=== PATIENT | male | born 1955 | race Caucasian/White ===

== ENCOUNTER → 2017-01-16 | Outpatient (CLI) | payer MEDICARE ==
[2017-01-16 10:47] LABS: Basophils % (A) 0 %; CH 32.6; CHCM 35.9; Eosinophils # (A) 0.2 k/uL (0-0.7); Eosinophils % (A) 3 %; HDW 2.67; HGB 14.6 gm/dL (13.0-17.5); Luc # (Auto) 0.16; Luc % (Auto) 3; Lymphocytes # (A) 1.6 k/uL (1.0-4.8); Lymphocytes % (A) 30 %; MCH 31.7 pg (25.0-35.0); MCHC 34.8 g/dL (31.0-37.0); MCV 91.1 fL (80.0-100.0); Mean Platelet Volume 7.5; Monocytes # (A) 0.4 k/uL (0-1.0); Monocytes % (A) 7 %; Neutrophils # (A) 2.9 k/uL (1.3-7.7); Neutrophils % (A) 56 %; RBC 4.61 m/uL (4.30-5.90); RDW 12.6 % (11.5-15.5); WBC 5.3 k/uL (3.8-10.6); WBC (Perox) 4.86
[2017-01-16 11:09] LABS: ALT 53 U/L (21-72); AST 27 U/L (17-59); Alkaline Phosphatase 66 U/L (38-126); Anion Gap 10 mmol/L; Blood Urea Nitrogen 12 mg/dL (9-20); Calcium 9.7 mg/dL (8.4-10.2); Carbon Dioxide 27 mmol/L (22-30); Chloride 103 mmol/L (98-107); Cholesterol 179 mg/dL (<200); Glucose 146 mg/dL (74-99); HDL Cholesterol 42 mg/dL (40-60); Non-African American GFR(MDRD) >60 (>60 ml/min/1.73 sqM); Potassium 4.2 mmol/L (3.5-5.1); Sodium 140 mmol/L (137-145); Total Bilirubin 0.7 mg/dL (0.2-1.3); Triglycerides 210 mg/dL (<150)
[2017-01-16 11:39] LABS: Prostate Specific Antigen 1.19 ng/mL (0.00-4.00)
[2017-01-16 14:35] LABS: Hemoglobin A1C 6.8 % (4.2-6.1)
[2017-01-16 15:07] LABS: Urine Creatinine 57.9 mg/dL
== END | disposition home or self-care (01) ==
LOC: LABWHC1 09:39
PROVIDERS: ATTEND Internal Medicine
DX: E11.9 Type 2 diabetes mellitus without complications (principal); E55.9 Vitamin D deficiency, unspecified; I10 Essential (primary) hypertension; R89.9 Unspecified abnormal finding in specimens from other organs, systems and tissues; Z12.5 Encounter for screening for malignant neoplasm of prostate
CPT/HCPCS: 36415; 80053; 80061; 82043; 82306; 82570; 83036; 83516; 84153; 85025

== ENCOUNTER → 2017-03-08 | Outpatient (CLI) | payer MEDICARE ==
--- NOTE | 2017-03-08 16:34 | XR ---
EXAMINATION TYPE: XR KUB DATE OF EXAM: 03/08/2017 COMPARISON: 02/26/2016 HISTORY: Right-sided pain TECHNIQUE: One view abdominal series FINDINGS: The osseous structures are intact. The bowel gas pattern is nonspecific. Arthropathy of the hips not ed. Calcifications in the pelvis are likely vascular. There are 2 lower pole right renal calculi the largest of which measures 1.2 cm. A second measures 5 mm. Hypertrophic and degenerative change of the spine. Hypertrophic changes of the iliac bones. IMPRESSION: 1. Right-sided nephrolithiasis.
== END | disposition home or self-care (01) ==
LOC: RADXRMAIN 13:27
PROVIDERS: ATTEND Urology
DX: N20.0 Calculus of kidney (principal)
CPT/HCPCS: 74000

== ENCOUNTER → 2017-09-25 | Outpatient (CLI) | payer MEDICARE ==
--- NOTE | 2017-09-26 09:17 | US ---
EXAMINATION TYPE: US kidneys/renal and bladder DATE OF EXAM: 09/25/2017 COMPARISON: NONE CLINICAL HISTORY: N20.0 KIDNEY STONE. EXAM MEASUREMENTS: Right Kidney: 12.1 x 5.2 x 5.9 cm Left Kidney: 11.4 x 5.8 x 5.9 cm Right Kidney: 2 stones noted measuring 1.5 x 0.7 x 1.0cm , 1.) 0.8 x 0.5 x 0.6cm, measures slightly large Left Kidney: No hydronephrosis or masses seen Bladder: not fully distended and therefore incompletely evaluated There is no evidence for hydronephrosis at this point in time. No masses are identified. The urinar y bladder is anechoic. IMPRESSION: Right-sided nephrolithiasis with calculi measuring up to 1.5 cm. No evidence of hydronephrosis bilat erally or obstructive uropathy.
== END | disposition home or self-care (01) ==
LOC: RADUSWWP 14:42
PROVIDERS: ATTEND Urology
DX: N20.0 Calculus of kidney (principal)
CPT/HCPCS: 76770

== ENCOUNTER → 2018-04-16 | Outpatient (CLI) | payer MEDICARE ==
--- NOTE | 2018-04-16 13:34 | US ---
EXAMINATION TYPE: US kidneys/renal and bladder DATE OF EXAM: 04/16/2018 COMPARISON: 09/25/2017 CLINICAL HISTORY: N20.0 Calculus of kidney. hx of renal stones with them being blasted. No pain at t his time. EXAM MEASUREMENTS: Right Kidney: 11.9 x 5.0 x 5.2 cm Left Kidney: 11.8 x 5.6 x 7.0 cm Right Kidney: inferior echogenic focus with shadow - 2.0 x 0.9 cm Left Kidney: wnl Bladder: distended, wnl as visualized Bilateral Jets seen There is no evidence for hydronephrosis at this point in time. No nephrolithiasis is seen. No chandler s are identified. The urinary bladder is anechoic. Bilateral ureteral jets are seen. IMPRESSION: Nonobstructing right lower pole 2 cm renal calculus. No hydronephrosis bilaterally.
== END | disposition home or self-care (01) ==
LOC: RADUSWWP 12:07
PROVIDERS: ATTEND Urology
DX: N20.0 Calculus of kidney (principal)
CPT/HCPCS: 36415; 76770; 84153

== ENCOUNTER → 2018-07-06 | Outpatient (CLI) | payer MEDICARE ==
[2018-07-06 11:15] LABS: Basophils % (A) 0 %; Eosinophils # (A) 0.2 k/uL (0-0.7); Eosinophils % (A) 3 %; HCT 46.2 % (39.0-53.0); HGB 16.3 gm/dL (13.0-17.5); Lymphocytes # (A) 1.6 k/uL (1.0-4.8); Lymphocytes % (A) 27 %; MCH 31.7 pg (25.0-35.0); MCHC 35.3 g/dL (31.0-37.0); Mean Platelet Volume 7.2; Monocytes # (A) 0.5 k/uL (0-1.0); Monocytes % (A) 9 %; Neutrophils # (A) 3.5 k/uL (1.3-7.7); Neutrophils % (A) 59 %; Platelet Count 156 k/uL (150-450); RBC 5.14 m/uL (4.30-5.90); WBC 5.9 k/uL (3.8-10.6)
[2018-07-06 16:41] LABS: Albumin 4.8 g/dL (3.80-4.90); Albumin/Globulin Ratio 1.92 (1.20-2.10); Anion Gap 11.7 mmol/L (4.00-12.00); Calcium 10.3 mg/dL (8.7-10.3); Carbon Dioxide 24.3 mmol/L (21.6-31.8); Globulin 2.5 g/dL (1.6-3.3); Total Bilirubin 0.7 mg/dL (0.2-1.2); Total Protein 7.3 g/dL (6.2-8.2)
== END ==
LOC: LABWHC1 10:37
PROVIDERS: ATTEND Internal Medicine Gastroenterology
DX: M62.84 Sarcopenia (principal); E66.01 Morbid (severe) obesity due to excess calories; E88.01 Alpha-1-antitrypsin deficiency; K76.0 Fatty (change of) liver, not elsewhere classified; R74.0 Nonspecific elevation of levels of transaminase and lactic acid dehydrogenase [LDH]
CPT/HCPCS: 36415; 80053; 84402; 84403; 85025

== ENCOUNTER → 2018-09-03 | Outpatient (CLI) | payer MEDICARE ==
--- NOTE | 2018-09-03 14:05 | US ---
EXAMINATION TYPE: US kidneys/renal and bladder DATE OF EXAM: 09/03/2018 COMPARISON: NONE CLINICAL HISTORY: N20.0 Kidney Stone. known right stone EXAM MEASUREMENTS: Right Kidney: 12.5 x 6.5 x 6.0 cm Left Kidney: 11.7 x 5.4 x 6.5 cm Right Kidney: 2 mid pole stones seen, #1 = 1.7cm, #2 = 1.2cm Left Kidney: No hydronephrosis or masses seen Bladder: wnl Bilateral Jets seen: Yes IMPRESSION: 1. Right renal stones without evidence of obstruction.
== END | disposition home or self-care (01) ==
LOC: RADUSWWP 12:55
PROVIDERS: ATTEND Urology
DX: N20.0 Calculus of kidney (principal)
CPT/HCPCS: 76770

== ENCOUNTER → 2019-01-02 | Outpatient (CLI) | payer MEDICARE ==
--- NOTE | 2019-01-03 07:15 | US ---
EXAMINATION TYPE: US kidneys/renal and bladder DATE OF EXAM: 01/02/2019 COMPARISON: 09/03/2018 CLINICAL HISTORY: N20.0 KIDNEY STONE. hx of renal stones. Intermittent pain. FU stones EXAM MEASUREMENTS: Right Kidney: 11.9 x 5.6 x 5.5 cm Left Kidney: 12.7 x 5.4 x 5.6 cm Right Kidney: Echogenic foci seen with shadowing. 1- mid= 1.8 cm. 2- lower pole = 1.0 cm Left Kidney: No hydronephrosis or masses seen Bladder: distended, wnl Bilateral Jets seen There is no evidence for hydronephrosis at this point in time. No nephrolithiasis is seen on the lef t. No masses are identified. The urinary bladder is anechoic. Bilateral ureteral jets are seen. IMPRESSION: Nonobstructing right renal calculi measuring 1.8 cm and 1.0 cm. These were seen on the prior exam of 09/03/2018.
== END | disposition home or self-care (01) ==
LOC: RADUSWWP 16:18
PROVIDERS: ATTEND Urology
DX: N20.0 Calculus of kidney (principal)
CPT/HCPCS: 76770

== ENCOUNTER → 2019-02-01 | Outpatient (CLI) | payer MEDICARE ==
[2019-02-01 11:42] LABS: Appearance,Urine Clear (Clear); Bilirubin,Urine Negative (Negative); Blood,Urine Large (Negative); Color,Urine Yellow; Glucose,Urine (UA) Negative (Negative); Ketones,Urine Negative (Negative); Leukocyte Esterase,Urine Moderate (Negative); Nitrite,Urine Negative (Negative); Protein,Urine 2+ (Negative); RBC,Urine >182 /hpf (0-5); Specific Gravity,Urine 1.015 (1.001-1.035); Squamous Epithelial Cell,Urine <1 /hpf (0-4); Urobilinogen,Urine <2.0 mg/dL (<2.0); WBC,Urine 37 /hpf (0-5)
[2019-02-01 12:37] LABS: Basophils % (A) 1 %; Eosinophils # (A) 0.2 k/uL (0-0.7); Eosinophils % (A) 3 %; HCT 43.5 % (39.0-53.0); HGB 14.8 gm/dL (13.0-17.5); Lymphocytes # (A) 1.4 k/uL (1.0-4.8); Lymphocytes % (A) 28 %; MCH 30.9 pg (25.0-35.0); MCHC 34.1 g/dL (31.0-37.0); MCV 90.6 fL (80.0-100.0); Mean Platelet Volume 6.8; Monocytes # (A) 0.4 k/uL (0-1.0); Monocytes % (A) 7 %; Neutrophils % (A) 59 %; Platelet Count 161 k/uL (150-450); RDW 12.1 % (11.5-15.5); WBC 5.1 k/uL (3.8-10.6)
[2019-02-01 14:34] LABS: Erythrocyte Sedimentation Rate 8 mm/hr (0-15)
[2019-02-01 17:10] LABS: African American GFR (CKD) 111.7 (60.0-200.0); Albumin 4.5 g/dL (3.80-4.90); Albumin/Globulin Ratio 2.14 (1.60-3.17); Anion Gap 8.4 mmol/L (4.00-12.00); Calcium 9.4 mg/dL (8.7-10.3); Carbon Dioxide 26.6 mmol/L (21.6-31.8); Globulin 2.1 g/dL (1.6-3.3); LDL Cholesterol,Calculated 95.4 mg/dL (0.0-131.0); Potassium 4.3 mmol/L (3.5-5.5); Total Bilirubin 0.7 mg/dL (0.2-1.2); Total Protein 6.6 g/dL (6.2-8.2); VLDL Calculation 45.6 mg/dL (5.00-40.00)
[2019-02-01 17:16] LABS: T4, Free (Free Thyroxine) 1.1 ng/dL (0.80-1.80)
== END | disposition home or self-care (01) ==
LOC: LABWHC1 10:40
PROVIDERS: ATTEND Internal Medicine
DX: I10 Essential (primary) hypertension (principal); E11.9 Type 2 diabetes mellitus without complications; N20.0 Calculus of kidney; E55.9 Vitamin D deficiency, unspecified; R53.83 Other fatigue; E04.2 Nontoxic multinodular goiter; Z12.5 Encounter for screening for malignant neoplasm of prostate
CPT/HCPCS: 36415; 80053; 80061; 81001; 82306; 82550; 84153; 84402; 84403; 84439; 84443; 84481; 85025; 85652

== ENCOUNTER → 2019-04-18 | Outpatient (CLI) | payer MEDICARE ==
--- NOTE | 2019-04-19 07:40 | US ---
EXAMINATION TYPE: US kidneys/renal and bladder DATE OF EXAM: 04/18/2019 COMPARISON: 01/02/2019 CLINICAL HISTORY: N20.0 Calculus of kidney. follow up stones. No pain. EXAM MEASUREMENTS: Right Kidney: 11.2 x 5.8 x 5.9 cm Left Kidney: 12.0 x 4.5 x 6.6 cm Right Kidney: Two echogenic foci visualized with shadow. 1- mid medial - 1.7 x 1.7 cm with possible obstruction. 2- lower pole - 1.0 x 0.9 cm Left Kidney: No hydronephrosis or masses seen Bladder: wnl, distended Bilateral Jets seen There is no evidence for hydronephrosis at this point in time. No nephrolithiasis is seen on the lef t. No masses are identified. The urinary bladder is anechoic. Bilateral ureteral jets are seen. IMPRESSION: Redemonstration of known right-sided nephrolithiasis with calculi measuring up to 1.7 cm. No evidence of hydronephrosis or obstructive uropathy within either kidney.
== END | disposition home or self-care (01) ==
LOC: RADUSWWP 16:17
PROVIDERS: ATTEND Urology
DX: N20.0 Calculus of kidney (principal)
CPT/HCPCS: 76770

== ENCOUNTER → 2019-06-04 | Outpatient (CLI) | payer MEDICARE ==
[2019-06-04 11:42] LABS: HGB 14.8 gm/dL (13.0-17.5); MCH 31.9 pg (25.0-35.0); MCHC 35.2 g/dL (31.0-37.0); MCV 90.6 fL (80.0-100.0); Mean Platelet Volume 6.4; Platelet Count 191 k/uL (150-450); RBC 4.64 m/uL (4.30-5.90); RDW 12.1 % (11.5-15.5); WBC 4.3 k/uL (3.8-10.6)
[2019-06-04 12:39] LABS: Appearance,Urine Clear (Clear); Bilirubin,Urine Negative (Negative); Blood,Urine Moderate (Negative); Color,Urine Yellow; Glucose,Urine (UA) Negative (Negative); Hyaline Casts,Urine 1 /lpf (0-2); Ketones,Urine Negative (Negative); Leukocyte Esterase,Urine Moderate (Negative); Mucus,Urine Rare /hpf; Nitrite,Urine Negative (Negative); PH, Urine 6.5 (5.0-8.0); Protein,Urine 2+ (Negative); RBC,Urine >182 /hpf (0-5); Specific Gravity,Urine 1.018 (1.001-1.035); Urobilinogen,Urine <2.0 mg/dL (<2.0); WBC,Urine 38 /hpf (0-5)
[2019-06-04 16:28] LABS: African American GFR (CKD) 106.5 (60.0-200.0); Albumin 4.7 g/dL (3.80-4.90); Albumin/Globulin Ratio 2.35 (1.60-3.17); Anion Gap 9.8 mmol/L (4.00-12.00); BUN/Creat Ratio 18.89 Ratio (12.00-20.00); Calcium 9.7 mg/dL (8.7-10.3); Carbon Dioxide 27.2 mmol/L (21.6-31.8); Non-African American GFR(CKD) 91.9 (60.0-200.0); Phosphorus 2.8 mg/dL (2.4-5.1); Potassium 3.9 mmol/L (3.5-5.5); Total Bilirubin 0.7 mg/dL (0.3-1.2); Total Protein 6.7 g/dL (6.2-8.2); Uric Acid 7.7 mg/dL (3.7-8.7)
[2019-06-04 17:54] LABS: Creatinine,Urine Random 107.2 mg/dL
[2019-06-04 18:06] LABS: Total Protein,Urine Random 150.4 mg/dL (0.0-13.5)
== END | disposition home or self-care (01) ==
LOC: LABWHC1 09:33
PROVIDERS: ATTEND Internal Medicine
DX: N18.1 Chronic kidney disease, stage 1 (principal); R80.9 Proteinuria, unspecified
CPT/HCPCS: 36415; 80053; 81001; 82043; 82306; 82310; 82570; 83970; 84100; 84156; 84550; 85027

== ENCOUNTER → 2019-12-17 | Outpatient (CLI) | payer MEDICARE ==
[2019-12-17 13:11] LABS: HCT 42.8 % (39.0-53.0); HGB 14.8 gm/dL (13.0-17.5); MCH 31.9 pg (25.0-35.0); MCHC 34.6 g/dL (31.0-37.0); MCV 92.1 fL (80.0-100.0); Mean Platelet Volume 7.5; Platelet Count 202 k/uL (150-450); RBC 4.65 m/uL (4.30-5.90); RDW 11.8 % (11.5-15.5); WBC 8.4 k/uL (3.8-10.6)
[2019-12-17 13:29] LABS: Appearance,Urine Cloudy (Clear); Bilirubin,Urine Negative (Negative); Blood,Urine Large (Negative); Color,Urine Red; Glucose,Urine (UA) Negative (Negative); Ketones,Urine Negative (Negative); Leukocyte Esterase,Urine Trace (Negative); Nitrite,Urine Negative (Negative); PH, Urine 7.5 (5.0-8.0); Protein,Urine 1+ (Negative); RBC,Urine >182 /hpf (0-5); Specific Gravity,Urine 1.019 (1.001-1.035); WBC,Urine 22 /hpf (0-5)
[2019-12-17 14:24] LABS: Protein/Creatinine Ratio,Urine 1.346
[2019-12-17 19:43] LABS: Protein, Total 7.1 g/dL (6.2-8.2)
[2019-12-17 19:56] LABS: Albumin 4.6 g/dL (3.80-4.90); Albumin/Globulin Ratio 1.84 (1.60-3.17); Anion Gap 12.5 mmol/L (4.00-12.00); BUN/Creat Ratio 21.25 Ratio (12.00-20.00); Calcium 9.8 mg/dL (8.7-10.3); Carbon Dioxide 25.5 mmol/L (21.6-31.8); Globulin 2.5 g/dL (1.6-3.3); Non-African American GFR(CKD) 95.7 (60.0-200.0); Phosphorus 2.9 mg/dL (2.4-5.1); Potassium 4.3 mmol/L (3.5-5.5); Total Bilirubin 0.4 mg/dL (0.3-1.2); Total Protein 7.1 g/dL (6.2-8.2); Uric Acid 6.8 mg/dL (3.7-8.7)
[2019-12-17 20:25] LABS: Hepatitis B Core IgM Non-Reactive (Non-Reactive); Hepatitis B Surface AB- Quant 128.5 mIU/mL; Hepatitis B Surface Antibody Reactive (Non-Reactive); Hepatitis B Surface Antigen Non-Reactive (Non-Reactive); Hepatitis C IgG Antibody Non-Reactive (Non-Reactive)
[2019-12-17 21:16] LABS: Anti-DNA, DS unit <1.0 IU/mL; DNA Double-Stranded NEGATIVE (NEGATIVE)
[2019-12-18 09:38] LABS: Free Kappa Lt Chain Qnt, Serum 1.47 mg/dL (0.33-1.94)
[2019-12-18 11:41] LABS: Anti-Glomerular Basement Memb 1 UNITS (0-20)
[2019-12-18 13:57] LABS: Albumin 4.09 g/dL (3.80-4.90); Gamma Globulin 1.11 g/dL (0.70-1.50)
[2019-12-18 14:54] LABS: C-ANCA <1:20 Titer (<1:20)
[2019-12-20 15:06] LABS: Hepatitis BE Antibody NEG (Negative)
== END | disposition home or self-care (01) ==
LOC: LABWHC1 11:55
PROVIDERS: ATTEND Internal Medicine
DX: D64.9 Anemia, unspecified (principal); R80.9 Proteinuria, unspecified; N39.0 Urinary tract infection, site not specified; M10.9 Gout, unspecified
CPT/HCPCS: 36415; 80053; 81001; 82570; 83516; 83883; 84100; 84156; 84165; 84166; 84550; 85027; 86038; 86160; 86225; 86255; 86334; 86704; 86705; 86706; 86707; 86803; 87340

== ENCOUNTER → 2020-01-28 | Outpatient (CLI) | payer MEDICARE ==
--- NOTE | 2020-01-28 12:54 | US ---
EXAMINATION TYPE: US kidneys/renal and bladder DATE OF EXAM: 01/28/2020 COMPARISON: NONE CLINICAL HISTORY: 64-year-old male N20.0 Kidney Stone. Known renal stones TECHNIQUE: Multiple sonographic images of the kidneys and bladder are obtained. FINDINGS: EXAM MEASUREMENTS: Right Kidney: 12.1 x 5.4 x 6.2 cm Left Kidney: 12.5 x 5.1 x 7.0 cm Right Kidney: multiple stones seen, largest at inferior pole 2.1cm, second stone centrally at the mid pole = 1.8cm . There may be mild pelvocaliectasis. Left Kidney: 1.0cm inferior pole stone seen without hydronephrosis. No hydronephrosis on either side. Bladder: wnl Bilateral Jets seen: yes IMPRESSION: 1. Bilateral nephrolithiasis. On the right, there is a centrally located 1.8 cm calculus possibly in the renal pelvis. The calyces may be slightly distended. 2. Both ureteral jets are visualized arguing against obstructive uropathy at this time.
== END | disposition home or self-care (01) ==
LOC: RADUSWWP 10:32
PROVIDERS: ATTEND Urology
DX: N20.0 Calculus of kidney (principal)
CPT/HCPCS: 76770

== ENCOUNTER → 2020-04-22 | Outpatient (CLI) | payer MEDICARE ==
[2020-04-22 08:36] LABS: Basophils % (A) 0 %; Eosinophils # (A) 0.1 k/uL (0-0.7); Eosinophils % (A) 2 %; HCT 46.9 % (39.0-53.0); HGB 15.2 gm/dL (13.0-17.5); Lymphocytes # (A) 1.4 k/uL (1.0-4.8); Lymphocytes % (A) 27 %; MCH 30.5 pg (25.0-35.0); MCHC 32.3 g/dL (31.0-37.0); MCV 94.3 fL (80.0-100.0); Mean Platelet Volume 7.5; Monocytes # (A) 0.4 k/uL (0-1.0); Monocytes % (A) 8 %; Neutrophils # (A) 3.3 k/uL (1.3-7.7); Neutrophils % (A) 61 %; Platelet Count 167 k/uL (150-450); RBC 4.97 m/uL (4.30-5.90); RDW 12.1 % (11.5-15.5); WBC 5.4 k/uL (3.8-10.6)
[2020-04-22 10:04] LABS: Protein/Creatinine Ratio,Urine 1.37
[2020-04-22 10:14] LABS: Appearance,Urine Clear (Clear); Bacteria,Urine Occasional /hpf; Bilirubin,Urine Negative (Negative); Blood,Urine Small (Negative); Color,Urine Light Yellow; Glucose,Urine (UA) Negative (Negative); Ketones,Urine Negative (Negative); Leukocyte Esterase,Urine Large (Negative); Mucus,Urine Rare /hpf; Nitrite,Urine Negative (Negative); PH, Urine 6.5 (5.0-8.0); Protein,Urine 1+ (Negative); RBC,Urine 7 /hpf (0-5); Specific Gravity,Urine 1.009 (1.001-1.035); Squamous Epithelial Cell,Urine <1 /hpf (0-4); Urobilinogen,Urine <2.0 mg/dL (<2.0); WBC,Urine 40 /hpf (0-5)
[2020-04-22 18:22] LABS: African American GFR (CKD) 117.2 (60.0-200.0); Albumin 4.5 g/dL (3.80-4.90); Albumin/Globulin Ratio 1.96 (1.60-3.17); BUN/Creat Ratio 24.29 Ratio (12.00-20.00); Calcium 9.4 mg/dL (8.7-10.3); Globulin 2.3 g/dL (1.6-3.3); Non-African American GFR(CKD) 101.1 (60.0-200.0); Phosphorus 2.7 mg/dL (2.4-5.1); Potassium 4.3 mmol/L (3.5-5.5); Total Bilirubin 0.7 mg/dL (0.2-1.2); Total Protein 6.8 g/dL (6.2-8.2); Uric Acid 6.6 mg/dL (3.7-8.7)
[2020-04-22 18:30] LABS: PSA Annual Screen 1.2 ng/mL (0.0-4.0)
[2020-04-24 11:35] LABS: Chol/HDL Ratio 4.18; LDL Cholesterol,Calculated 86.6 mg/dL (0.0-131.0); VLDL Calculation 34.4 mg/dL (5.00-40.00)
== END | disposition home or self-care (01) ==
LOC: LABWHC1 07:31
PROVIDERS: ATTEND Internal Medicine
DX: Z12.5 Encounter for screening for malignant neoplasm of prostate (principal); I12.9 Hypertensive chronic kidney disease with stage 1 through stage 4 chronic kidney disease, or unspecified chronic kidney disease; N18.1 Chronic kidney disease, stage 1; R80.9 Proteinuria, unspecified
CPT/HCPCS: 82570 ×2; 80053; 84156; 84100; 84550; 85025; 81001; 82306; 83970; 82043; 36415; G0103

== ENCOUNTER → 2020-08-11 | Outpatient (CLI) | payer MEDICARE ==
--- NOTE | 2020-08-11 09:39 | US ---
EXAMINATION TYPE: US kidneys/renal and bladder DATE OF EXAM: 08/11/2020 COMPARISON: Multiple CT's and US's CLINICAL HISTORY: N20.0 Calculus of kidney. F/U previous, pt does states right flank pain EXAM MEASUREMENTS: Right Kidney: 11.9 x 5.6 x 7.1 cm Left Kidney: 12.5 x 6.0 x 5.2 cm Right Kidney: Mild hydro with ?staghorn calculus at hilum= 4.2 cm Left Kidney: No evidence of hydro, porbable calculus at lower pole= 1.0 cm Bladder: wnl Bilateral Jets seen: Yes No masses are identified. The urinary bladder is anechoic. Bilateral ureteral jets are seen. IMPRESSION: 1. Mild right-sided hydronephrosis with the staghorn calculus is suggested. 2. Nonobstructing calculus lower pole left kidney.
== END | disposition home or self-care (01) ==
LOC: RADUSWWP 08:49
PROVIDERS: ATTEND Urology
DX: N13.2 Hydronephrosis with renal and ureteral calculous obstruction (principal)
CPT/HCPCS: 76770

== ENCOUNTER → 2020-11-17 | Outpatient (CLI) | payer MEDICARE ==
[2020-11-17 14:11] LABS: Appearance,Urine Clear (Clear); Bacteria,Urine Rare /hpf; Bilirubin,Urine Negative (Negative); Blood,Urine Negative (Negative); Color,Urine Light Yellow; Glucose,Urine (UA) Negative (Negative); Ketones,Urine Negative (Negative); Leukocyte Esterase,Urine Moderate (Negative); Mucus,Urine Rare /hpf; Nitrite,Urine Negative (Negative); Protein,Urine 1+ (Negative); RBC,Urine <1 /hpf (0-5); Urobilinogen,Urine <2.0 mg/dL (<2.0); WBC,Urine 8 /hpf (0-5)
[2020-11-17 16:44] LABS: Creatinine,Urine Random 43.8 mg/dL; Protein/Creatinine Ratio,Urine 1.712
[2020-11-17 19:03] LABS: HCT 42.6 % (39.6-50.0); HGB 14.6 g/dL (13.0-17.0); MCH 31.2 pg (27.0-32.0); MCHC 34.3 g/dL (32.0-37.0); Mean Platelet Volume 10.5 fL (9.5-12.2); Platelet Count 171 X 10*3/uL (140-440); RBC 4.68 X 10*6/uL (4.40-5.60); RDW 11.5 % (11.5-14.5); WBC 5.22 X 10*3/uL (4.50-10.00)
[2020-11-18 00:36] LABS: Albumin 4.6 g/dL (3.80-4.90); Albumin/Globulin Ratio 2.09 (1.60-3.17); Anion Gap 10.5 mmol/L (4.00-12.00); BUN/Creat Ratio 14.44 Ratio (12.00-20.00); Calcium 9.6 mg/dL (8.7-10.3); Carbon Dioxide 24.5 mmol/L (21.6-31.8); Globulin 2.2 g/dL (1.6-3.3); Magnesium 1.7 mg/dL (1.5-2.4); Non-African American GFR(CKD) 90.6 (60.0-200.0); Phosphorus 3.3 mg/dL (2.4-5.1); Potassium 4.2 mmol/L (3.5-5.5); Total Bilirubin 0.6 mg/dL (0.2-1.2); Total Protein 6.8 g/dL (6.2-8.2); Uric Acid 5.9 mg/dL (3.7-8.7)
[2020-11-18 07:27] LABS: Urine Creatinine 40.2 mg/dL
== END | disposition home or self-care (01) ==
LOC: LABWHC1 12:06
PROVIDERS: ATTEND Internal Medicine
DX: N25.81 Secondary hyperparathyroidism of renal origin (principal); D64.9 Anemia, unspecified; E83.39 Other disorders of phosphorus metabolism; M10.9 Gout, unspecified; N39.0 Urinary tract infection, site not specified; R80.9 Proteinuria, unspecified
CPT/HCPCS: 36415; 80053; 81001; 82043; 82306; 82570; 83735; 83970; 84100; 84156; 84550; 85027

== ENCOUNTER → 2020-11-18 | Outpatient (CLI) | payer MEDICARE ==
--- NOTE | 2020-11-18 08:53 | US ---
EXAMINATION TYPE: US kidneys/renal and bladder DATE OF EXAM: 11/18/2020 COMPARISON: Multiple US and CT's CLINICAL HISTORY: N20.0 Calculus of kidney. EXAM MEASUREMENTS: Right Kidney: 12.7 x 6.4 x 6.0 cm Left Kidney: 13.3 x 6.8 x 5.6 cm Post Void Residual Volume: 34.6 mL Right Kidney: Multiple calculi as seen previously. Mildly dilated renal pelvis. Left Kidney: Multiple calculi as seen previously. Bladder: wnl Bilateral Jets seen: Yes Normal Post Void Residual: Yes No masses are identified. The urinary bladder is anechoic. Bilateral ureteral jets are seen. IMPRESSION: 1. Bilateral nephrolithiasis. 2. Mild right-sided hydronephrosis.
== END | disposition home or self-care (01) ==
LOC: RADUSWWP 08:12
PROVIDERS: ATTEND Urology
DX: N20.0 Calculus of kidney (principal); N13.30 Unspecified hydronephrosis
CPT/HCPCS: 76770

== ENCOUNTER → 2020-12-08 | Outpatient (CLI) | payer MEDICARE ==
[2020-12-08 14:53] LABS: Appearance,Urine Clear (Clear); Bilirubin,Urine Negative (Negative); Blood,Urine Trace (Negative); Color,Urine Light Yellow; Glucose,Urine (UA) Negative (Negative); Ketones,Urine Negative (Negative); Leukocyte Esterase,Urine Small (Negative); Mucus,Urine Rare /hpf; Nitrite,Urine Negative (Negative); PH, Urine 6.5 (5.0-8.0); Protein,Urine Negative (Negative); RBC,Urine 3 /hpf (0-5); Specific Gravity,Urine 1.008 (1.001-1.035); Urobilinogen,Urine <2.0 mg/dL (<2.0); WBC,Urine 7 /hpf (0-5)
[2020-12-08 14:55] LABS: Creatinine,Urine Random 38.4 mg/dL; Protein/Creatinine Ratio,Urine 0.365
[2020-12-08 21:38] LABS: HCT 41.4 % (39.6-50.0); MCHC 33.8 g/dL (32.0-37.0); MCV 91.8 fL (80.0-97.0); Mean Platelet Volume 10.4 fL (9.5-12.2); Platelet Count 180 X 10*3/uL (140-440); RBC 4.51 X 10*6/uL (4.40-5.60); RDW 11.4 % (11.5-14.5); WBC 6.09 X 10*3/uL (4.50-10.00)
[2020-12-08 22:19] LABS: Anion Gap 10.5 mmol/L (4.00-12.00); BUN/Creat Ratio 14.44 Ratio (12.00-20.00); Calcium 10.1 mg/dL (8.7-10.3); Carbon Dioxide 26.5 mmol/L (21.6-31.8); Non-African American GFR(CKD) 90.6 (60.0-200.0); Potassium 4.3 mmol/L (3.5-5.5)
== END | disposition home or self-care (01) ==
LOC: LABWHC1 12:36
PROVIDERS: ATTEND Internal Medicine
DX: R80.9 Proteinuria, unspecified (principal)
CPT/HCPCS: 36415; 80048; 81001; 82570; 84156; 85027

== ENCOUNTER → 2020-12-08 | Outpatient (CLI) | payer MEDICARE ==
--- NOTE | 2020-12-08 12:59 | CT ---
EXAMINATION TYPE: CT abdomen pelvis wo con DATE OF EXAM: 12/08/2020 COMPARISON: 02/26/2016 HISTORY: Hematuria CT DLP: 83 mGycm Automated exposure control for dose reduction was used. TECHNIQUE: Helical acquisition of images was performed from the lung bases through the pelvis. FINDINGS: LUNG BASES: Vague groundglass changes involving the lower lobe likely related atelectasis. Correlate clinically.. LIVER/GB: No significant abnormality is appreciated. PANCREAS: No significant abnormality is seen. SPLEEN: No significant abnormality is seen. ADRENALS: No significant abnormality is seen. KIDNEYS: Moderate to severe right hydronephrosis with multiple right-sided renal calculi: Approximate number of 5 with a large right renal pelvic calcification measuring 2.3 cm. Perinephric edema noted. Mild left hydronephrosis with a 5 mm lower pole left ureteral calculus. No bladder calculi.. ADENOPATHY: None visualized. OSSEOUS STRUCTURES: Hypertrophic and degenerative changes of the spine. BOWEL: Diverticulosis of the colon. Bowel gas pattern nonspecific with no obstruction. OTHER: Atherosclerotic change aorta. No evidence of aneurysm. No free fluid or free air. Fat-containi ng bilateral inguinal hernias. IMPRESSION: 1. Moderate to severe right hydronephrosis due to multiple right renal calculi but most notable a lar ge 2.3 cm right renal pelvic calcification. 2. Mild left hydronephrosis with single 5 mm lower pole left ureteral calculus. 3. Diverticulosis no CT evidence of diverticulitis.
== END | disposition home or self-care (01) ==
LOC: RADCTMAIN 12:08
PROVIDERS: ATTEND Urology
DX: N13.2 Hydronephrosis with renal and ureteral calculous obstruction (principal); K57.30 Diverticulosis of large intestine without perforation or abscess without bleeding
CPT/HCPCS: 74176

== ENCOUNTER → 2021-01-29 | Outpatient (CLI) | payer MEDICARE ==
[2021-01-29 10:39] LABS: Appearance,Urine Clear (Clear); Bilirubin,Urine Negative (Negative); Blood,Urine Moderate (Negative); Color,Urine Yellow; Glucose,Urine (UA) Negative (Negative); Ketones,Urine Negative (Negative); Leukocyte Esterase,Urine Large (Negative); Mucus,Urine Rare /hpf; Nitrite,Urine Negative (Negative); Protein,Urine 1+ (Negative); RBC,Urine 76 /hpf (0-5); Specific Gravity,Urine 1.011 (1.001-1.035); Urobilinogen,Urine <2.0 mg/dL (<2.0); WBC,Urine 28 /hpf (0-5)
[2021-01-29 15:54] LABS: Basophils # (A) 0.01 X 10*3/uL (0.00-0.10); Basophils % (A) 0.2 %; Eosinophils # (A) 0.07 X 10*3/uL (0.04-0.35); Eosinophils % (A) 1.3 %; HGB 14.4 g/dL (13.0-17.0); Lymphocytes # (A) 1.34 X 10*3/uL (0.90-5.00); Lymphocytes % (A) 25.4 %; MCH 31.1 pg (27.0-32.0); MCHC 34.3 g/dL (32.0-37.0); MCV 90.7 fL (80.0-97.0); Mean Platelet Volume 10.5 fL (9.5-12.2); Monocytes # (A) 0.47 X 10*3/uL (0.20-1.00); Monocytes % (A) 8.9 %; Neutrophils # (A) 3.38 X 10*3/uL (1.80-7.70); Neutrophils % (A) 64.2 %; Platelet Count 184 X 10*3/uL (140-440); RBC 4.63 X 10*6/uL (4.40-5.60); RDW 11.7 % (11.5-14.5); WBC 5.27 X 10*3/uL (4.50-10.00)
[2021-01-29 18:29] LABS: Hemoglobin A1C 6.3 % (4.0-6.0)
[2021-01-29 21:12] LABS: African American GFR (CKD) 110.2 (60.0-200.0); Albumin 4.6 g/dL (3.80-4.90); Albumin/Globulin Ratio 1.59 (1.60-3.17); Anion Gap 9.4 mmol/L (4.00-12.00); Calcium 9.6 mg/dL (8.7-10.3); Carbon Dioxide 24.6 mmol/L (21.6-31.8); Chol/HDL Ratio 3.61; Globulin 2.9 g/dL (1.6-3.3); LDL Cholesterol,Calculated 78.6 mg/dL (0.0-131.0); Non-African American GFR(CKD) 95.1 (60.0-200.0); Potassium 4.1 mmol/L (3.5-5.5); Total Bilirubin 0.7 mg/dL (0.2-1.2); Total Protein 7.5 g/dL (6.2-8.2); VLDL Calculation 20.4 mg/dL (5.00-40.00)
[2021-01-29 21:19] LABS: T4, Free (Free Thyroxine) 1.5 ng/dL (0.80-1.80)
== END | disposition home or self-care (01) ==
LOC: LABWHC1 09:58
PROVIDERS: ATTEND Nurse Practitioner Family
DX: Z01.812 Encounter for preprocedural laboratory examination (principal); E78.2 Mixed hyperlipidemia; E11.9 Type 2 diabetes mellitus without complications
CPT/HCPCS: 36415; 80053; 80061; 81001; 83036; 84439; 84443; 85025; 85730

== ENCOUNTER → 2021-02-22 | Outpatient (CLI) | payer MEDICARE ==
[2021-02-22 12:56] LABS: INR 0.9 (<1.2); Partial Thromboplastin Time 23.4 sec (22.0-30.0)
[2021-02-22 19:01] LABS: HCT 41.2 % (39.6-50.0); HGB 14.3 g/dL (13.0-17.0); MCH 31.4 pg (27.0-32.0); MCHC 34.7 g/dL (32.0-37.0); MCV 90.4 fL (80.0-97.0); Platelet Count 179 X 10*3/uL (140-440); RBC 4.56 X 10*6/uL (4.40-5.60); RDW 11.8 % (11.5-14.5); WBC 5.32 X 10*3/uL (4.50-10.00)
[2021-02-22 21:01] LABS: African American GFR (CKD) 110.2 (60.0-200.0); Albumin 4.6 g/dL (3.80-4.90); Albumin/Globulin Ratio 1.77 (1.60-3.17); Anion Gap 7.5 mmol/L (4.00-12.00); Calcium 9.4 mg/dL (8.7-10.3); Carbon Dioxide 26.5 mmol/L (21.6-31.8); Globulin 2.6 g/dL (1.6-3.3); Non-African American GFR(CKD) 95.1 (60.0-200.0); Total Bilirubin 0.7 mg/dL (0.2-1.2); Total Protein 7.2 g/dL (6.2-8.2)
== END | disposition home or self-care (01) ==
LOC: LABWHC1 12:01
PROVIDERS: ATTEND Urology
DX: Z01.818 Encounter for other preprocedural examination (principal)
CPT/HCPCS: 36415; 80053; 85027; 85610; 85730; 87086

== ENCOUNTER → 2021-06-02 | Outpatient (CLI) | payer MEDICARE ==
[2021-06-02 11:13] LABS: Appearance,Urine Cloudy (Clear); Bacteria,Urine Moderate /hpf; Bilirubin,Urine Negative (Negative); Blood,Urine Trace (Negative); Color,Urine Yellow; Glucose,Urine (UA) Negative (Negative); Ketones,Urine Negative (Negative); Leukocyte Esterase,Urine Large (Negative); Mucus,Urine Few /hpf; Nitrite,Urine Negative (Negative); PH, Urine 5.5 (5.0-8.0); Protein,Urine 1+ (Negative); RBC,Urine 18 /hpf (0-5); Specific Gravity,Urine 1.018 (1.001-1.035); Squamous Epithelial Cell,Urine 1 /hpf (0-4); Urobilinogen,Urine <2.0 mg/dL (<2.0); WBC,Urine >182 /hpf (0-5)
[2021-06-02 11:20] LABS: Creatinine,Urine Random 122.4 mg/dL; Protein/Creatinine Ratio,Urine 0.441
[2021-06-02 14:33] LABS: Basophils # (A) 0.03 X 10*3/uL (0.00-0.10); Basophils % (A) 0.5 %; Eosinophils # (A) 0.07 X 10*3/uL (0.04-0.35); Eosinophils % (A) 1.2 %; HCT 41.5 % (39.6-50.0); HGB 13.7 g/dL (13.0-17.0); Lymphocytes # (A) 1.47 X 10*3/uL (0.90-5.00); Lymphocytes % (A) 24.6 %; MCH 29.9 pg (27.0-32.0); MCV 90.6 fL (80.0-97.0); Mean Platelet Volume 10.2 fL (9.5-12.2); Monocytes # (A) 0.53 X 10*3/uL (0.20-1.00); Monocytes % (A) 8.9 %; Neutrophils # (A) 3.85 X 10*3/uL (1.80-7.70); Neutrophils % (A) 64.5 %; Platelet Count 199 X 10*3/uL (140-440); RBC 4.58 X 10*6/uL (4.40-5.60); RDW 12.7 % (11.5-14.5); WBC 5.97 X 10*3/uL (4.50-10.00)
[2021-06-02 15:51] LABS: African American GFR (CKD) 109.9 (60.0-200.0); Anion Gap 12.5 mmol/L (10.00-18.00); BUN/Creat Ratio 17.89 Ratio (12.00-20.00); Blood Urea Nitrogen 14.4 mg/dL (9.0-27.0); Calcium 9.6 mg/dL (8.7-10.3); Carbon Dioxide 25.2 mmol/L (20.0-27.5); Non-African American GFR(CKD) 94.8 (60.0-200.0); Potassium 4.5 mmol/L (3.5-5.5); Prostate Specific Antigen 1.7 ng/mL (0.00-4.50)
== END | disposition home or self-care (01) ==
LOC: LABWHC1 09:39
PROVIDERS: ATTEND Urology
DX: N20.0 Calculus of kidney (principal); R80.9 Proteinuria, unspecified
CPT/HCPCS: 36415; 80048; 81001; 82570; 84153; 84156; 85025

== ENCOUNTER → 2021-09-06 | Outpatient (CLI) | payer MEDICARE ==
[2021-09-06 08:51] LABS: Appearance,Urine Cloudy (Clear); Bacteria,Urine Few /hpf; Bilirubin,Urine Negative (Negative); Blood,Urine Moderate (Negative); Color,Urine Yellow; Glucose,Urine (UA) Negative (Negative); Ketones,Urine Trace (Negative); Leukocyte Esterase,Urine Large (Negative); Mucus,Urine Moderate /hpf; Nitrite,Urine Negative (Negative); PH, Urine 5.5 (5.0-8.0); Protein,Urine 1+ (Negative); RBC,Urine 85 /hpf (0-5); Specific Gravity,Urine 1.023 (1.001-1.035); Squamous Epithelial Cell,Urine 1 /hpf (0-4); WBC,Urine 64 /hpf (0-5)
[2021-09-06 09:13] LABS: Creatinine,Urine Random 210.2 mg/dL; Protein/Creatinine Ratio,Urine 0.48
[2021-09-06 14:50] LABS: Basophils # (A) 0.02 X 10*3/uL (0.00-0.10); Basophils % (A) 0.2 %; Eosinophils # (A) 0.01 X 10*3/uL (0.04-0.35); Eosinophils % (A) 0.1 %; HCT 43.2 % (39.6-50.0); HGB 14.4 g/dL (13.0-17.0); Immature Grans, Automated 0.3 %; Lymphocytes # (A) 0.86 X 10*3/uL (0.90-5.00); Lymphocytes % (A) 9.7 %; MCH 30.3 pg (27.0-32.0); MCHC 33.3 g/dL (32.0-37.0); MCV 90.9 fL (80.0-97.0); Mean Platelet Volume 10.1 fL (9.5-12.2); Monocytes # (A) 1.13 X 10*3/uL (0.20-1.00); Monocytes % (A) 12.7 %; NRBC Per 100 WBC 0 /100 WBCS (0.0-0.0); Neutrophils # (A) 6.82 X 10*3/uL (1.80-7.70); Platelet Count 198 X 10*3/uL (140-440); RBC 4.75 X 10*6/uL (4.40-5.60); RDW 11.9 % (11.5-14.5); WBC 8.87 X 10*3/uL (4.50-10.00)
[2021-09-06 16:03] LABS: ALT 19 U/L (10-49); AST 15 U/L (14-35); African American GFR (CKD) 81.8 (60.0-200.0); Albumin 4.7 g/dL (3.8-4.9); Albumin/Globulin Ratio 1.81 (1.60-3.17); Alkaline Phosphatase 66 U/L (41-126); Blood Urea Nitrogen 16.5 mg/dL (9.0-27.0); Calcium 9.7 mg/dL (8.7-10.3); Chloride 97 mmol/L (96-109); Chol/HDL Ratio 2.99 Ratio; Globulin 2.6 g/dL (1.6-3.3); Glucose 159 mg/dL (70-110); LDL Cholesterol,Calculated 73.3 mg/dL (0.0-131.0); Non-African American GFR(CKD) 70.6 (60.0-200.0); Potassium 4.2 mmol/L (3.5-5.5); Sodium 135 mmol/L (135-145); Total Protein 7.3 g/dL (6.2-8.2); VLDL Calculation 19.84 mg/dL (5.00-40.00)
== END | disposition home or self-care (01) ==
LOC: LABWHC1 08:02
PROVIDERS: ATTEND Urology
DX: E11.9 Type 2 diabetes mellitus without complications (principal); E55.9 Vitamin D deficiency, unspecified; R97.20 Elevated prostate specific antigen [PSA]; R80.9 Proteinuria, unspecified
CPT/HCPCS: 36415; 80053; 80061; 81001; 82043; 82306; 82570; 83036; 84153; 84156; 84439; 84443; 85025

== ENCOUNTER → 2021-09-06 | Outpatient (CLI) | payer MEDICARE ==
--- NOTE | 2021-09-06 17:11 | US ---
EXAMINATION TYPE: US kidneys/renal and bladder DATE OF EXAM: 09/06/2021 COMPARISON: CT & US 2020 CLINICAL HISTORY: N20.0 KIDNEY STONE. History of kidney stones EXAM MEASUREMENTS: Right Kidney: 11.4 x 6.0 x 5.4 cm Left Kidney: 11.9 x 6.0 x 5.2 cm Right Kidney: 0.9cm stone mid pole, 0.7cm lateral mid pole, 1.0 x 1.3 x 1.2cm hyperechoic area inferi or pole. This appears to be a new finding. Consider follow-up CT with contrast Left Kidney: mild hydronephrosis Bladder: wnl Bilateral Jets seen: yes IMPRESSION: 1. New 1.2 cm hyperechoic area within the mid to inferior right renal cortex. Additional workup with contrast CT is recommended. 2. Nonobstructing right renal stone. 3. Mild hydronephrosis of the left renal collecting system.
== END | disposition home or self-care (01) ==
LOC: RADUSWWP 12:48
PROVIDERS: ATTEND Urology
DX: N20.0 Calculus of kidney (principal); N13.30 Unspecified hydronephrosis
CPT/HCPCS: 76770

== ENCOUNTER → 2021-09-23 | Outpatient (CLI) | payer MEDICARE ==
[2021-09-23 07:49] LABS: African American GFR (CKD) >90 (>60 ml/min/1.73 sqM); Blood Urea Nitrogen 17 mg/dL (9-20); Non-African American GFR(CKD) >90 (>60 ml/min/1.73 sqM)
--- NOTE | 2021-09-23 08:28 | CT ---
EXAMINATION TYPE: CT abdomen w con DATE OF EXAM: 09/23/2021 COMPARISON: 12/08/2020 and 02/26/2016 HISTORY: Benign neoplasm of RT kidney CT DLP: 1257 mGycm CONTRAST: CT scan of the abdomen is performed with Oral Contrast and with IV Contrast, patient injected with 10 0mL mL of Isovue 300. FINDINGS: LUNG BASES-: No visible nodule. No infiltrate. LIVER/GB: No calcified gallstones. No space occupying hepatic lesion. Biliary tree is of normal ca liber. PANCREAS: No inflammation. No distinct mass. SPLEEN: No splenic enlargement. No lesion seen. ADRENALS: No nodule. No thickening. KIDNEYS: Noted are 2 hypoattenuating lesions right kidney each measuring less than 1 cm. Mid pole les ion measures 9 mm in the second lesion within the lower pole of the right kidney measures 6.5 mm. The lesions are too small to appropriately characterize however likely reflect small cysts. The left kid xavier is free of distinct solid or cystic mass. There is urothelial thickening of the right renal pelvi s with the mild fullness. There is hydronephrosis and hydroureter on the left. The distal portion of the ureters are not included on this abdomen only study. Urinary bladder is not appropriately evaluat ed. Distal obstructing calculus is difficult to exclude. Nonobstructing right-sided nephrolithiasis identified with a mid pole calculus measuring 5.6 mm and 5 .2 mm respectively. Right lower pole calculus measures 4.7 mm. BOWEL: The visualized gastrointestinal tract is of normal caliber. Moderate fecal stasis is noted. LYMPH NODES: No greater than 1cm abdominal or pelvic lymph nodes are appreciated. AORTA: No significant abnormality. OSSEOUS STRUCTURES: No significant abnormality is seen. OTHER: No significant additional abnormality is seen. IMPRESSION: 1. Probable right renal cysts although the 2 lesions noted are 2 small to appropriately characterize. 2. Hydroureteronephrosis left renal collecting system. Distal left ureter and urinary bladder not inc luded on this abdomen only study. Distal obstructing calculus is difficult to exclude. 3 nonobstructing right-sided nephrolithiasis.
== END | disposition home or self-care (01) ==
LOC: RADCTMAIN 07:05
PROVIDERS: ATTEND Urology
DX: N28.89 Other specified disorders of kidney and ureter (principal); N13.30 Unspecified hydronephrosis; N20.0 Calculus of kidney
CPT/HCPCS: 82565; 84520; 74160; 36415; Q9967 ×2

== ENCOUNTER → 2021-09-30 | Outpatient (CLI) | payer MEDICARE ==
--- NOTE | 2021-09-30 11:56 | CT ---
EXAMINATION TYPE: CT abdomen pelvis wo con DATE OF EXAM: 09/30/2021 COMPARISON: 09/23/2021 HISTORY: Hydronephrosis with renal & Ureteral calculus Obstruction CT DLP: 733.20 mGycm Automated exposure control for dose reduction was used. TECHNIQUE: Helical acquisition of images was performed from the lung bases through the pelvis. FINDINGS: LUNG BASES: No significant abnormality is appreciated. LIVER/GB: No significant abnormality is appreciated. PANCREAS: No significant abnormality is seen. SPLEEN: No significant abnormality is seen. ADRENALS: Mild thickening of the left adrenal gland. KIDNEYS: Noted are two hypoattenuating lesions right kidney each measuring less than 1 cm. Mid pole l esion measures 9 mm in the second lesion within the lower pole of the right kidney measures 6.5 mm. T he lesions are too small to appropriately characterize however likely reflect small cysts. There is urothelial thickening of the right renal pelvis with the mild fullness. There are 3 right-si ded calculi measuring less than 5 mm. No definite hydronephrosis. There is moderate hydronephrosis and hydroureter on the left. Nonobstructing distal left ureteral raquel culus measuring 5 mm in diameter a few centimeters above the UVJ.. ADENOPATHY: None visualized. OSSEOUS STRUCTURES: Hypertrophic and degenerative changes of the spine. Arthropathy of the hips. BOWEL: Bowel gas pattern is nonspecific with no obstruction. Appendix normal. Retained debris throug hout the colon correlate for calcific patient. OTHER: Aorta of normal caliber with atherosclerotic changes. IMPRESSION: 1. Moderate left hydronephrosis secondary to obstructing distal left ureteral calculus measuring 5 mm in diameter. 2. Nonobstructing right nephrolithiasis measuring 5 mm or less. 3. Indeterminate right renal lesions by noncontrast technique
== END | disposition home or self-care (01) ==
LOC: RADCTMAIN 11:09
PROVIDERS: ATTEND Urology
DX: N13.2 Hydronephrosis with renal and ureteral calculous obstruction (principal)
CPT/HCPCS: 74176

== ENCOUNTER → 2021-10-27 | Outpatient (CLI) | payer MEDICARE ==
[2021-10-27 11:09] LABS: Creatinine,Urine Random 48.6 mg/dL; Protein/Creatinine Ratio,Urine 0.226
[2021-10-27 14:44] LABS: HCT 41.4 % (39.6-50.0); HGB 13.5 g/dL (13.0-17.0); MCH 30.3 pg (27.0-32.0); MCHC 32.6 g/dL (32.0-37.0); MCV 92.8 fL (80.0-97.0); Mean Platelet Volume 10.1 fL (9.5-12.2); NRBC Per 100 WBC 0 /100 WBCS (0.0-0.0); Platelet Count 157 X 10*3/uL (140-440); RBC 4.46 X 10*6/uL (4.40-5.60); RDW 12.1 % (11.5-14.5)
[2021-10-27 17:31] LABS: African American GFR (CKD) 109.6 (60.0-200.0); Albumin 4.3 g/dL (3.8-4.9); Albumin/Globulin Ratio 1.63 (1.60-3.17); Anion Gap 11.6 mmol/L (10.00-18.00); BUN/Creat Ratio 14.45 Ratio (12.00-20.00); Blood Urea Nitrogen 11.5 mg/dL (9.0-27.0); Calcium 9.4 mg/dL (8.7-10.3); Carbon Dioxide 24.9 mmol/L (20.0-27.5); Globulin 2.6 g/dL (1.6-3.3); Magnesium 1.7 mg/dL (1.5-2.4); Non-African American GFR(CKD) 94.6 (60.0-200.0); Phosphorus 2.7 mg/dL (2.4-5.1); Potassium 4.3 mmol/L (3.5-5.5); Total Bilirubin 0.4 mg/dL (0.30-1.20); Uric Acid 4.3 mg/dL (3.7-8.7)
[2021-10-27 18:37] LABS: Appearance,Urine Clear (Clear); Bacteria,Urine None Seen /HPF (None Seen); Bilirubin,Urine Negative (Negative); Blood,Urine Negative (Negative); Color,Urine Yellow (Yellow); Ketones,Urine Negative (Negative); Nitrite,Urine Negative (Negative); Specific Gravity,Urine 1.011 (1.001-1.030); Urobilinogen,Urine 0.2 (0.2,1.0)
[2021-10-27 18:49] LABS: Urine Creatinine 46.5 mg/dL (39.0-259.0)
== END | disposition home or self-care (01) ==
LOC: LABWHC1 10:02
PROVIDERS: ATTEND Internal Medicine
DX: R80.9 Proteinuria, unspecified (principal)
CPT/HCPCS: 36415; 80053; 81001; 82043; 82306; 82570; 83735; 83970; 84100; 84156; 84550; 85027

== ENCOUNTER → 2022-01-31 | Outpatient (CLI) | payer MEDICARE ==
[2022-01-31 15:40] LABS: Basophils # (A) 0.04 X 10*3/uL (0.00-0.10); Basophils % (A) 0.8 %; Eosinophils # (A) 0.16 X 10*3/uL (0.04-0.35); Eosinophils % (A) 3.3 %; HGB 13.6 g/dL (13.0-17.0); Immature Grans, Automated 0.2 %; Lymphocytes % (A) 26.7 %; MCH 31.3 pg (27.0-32.0); MCV 92.2 fL (80.0-97.0); Mean Platelet Volume 10.4 fL (9.5-12.2); Monocytes # (A) 0.51 X 10*3/uL (0.20-1.00); Monocytes % (A) 10.5 %; NRBC Per 100 WBC 0 /100 WBCS (0.0-0.0); Neutrophils # (A) 2.85 X 10*3/uL (1.80-7.70); Neutrophils % (A) 58.5 %; Platelet Count 178 X 10*3/uL (140-440); RBC 4.34 X 10*6/uL (4.40-5.60); RDW 11.9 % (11.5-14.5); WBC 4.87 X 10*3/uL (4.50-10.00)
[2022-01-31 15:48] LABS: ALT 28 U/L (10-49); AST 20 U/L (14-35); African American GFR (CKD) 105.6 (60.0-200.0); Albumin 4.2 g/dL (3.8-4.9); Albumin/Globulin Ratio 1.59 (1.60-3.17); Alkaline Phosphatase 60 U/L (41-126); BUN/Creat Ratio 21.67 Ratio (12.00-20.00); Blood Urea Nitrogen 18.9 mg/dL (9.0-27.0); Calcium 9.7 mg/dL (8.7-10.3); Carbon Dioxide 23.6 mmol/L (20.0-27.5); Chloride 102 mmol/L (96-109); Chol/HDL Ratio 3.92 Ratio; Globulin 2.7 g/dL (1.6-3.3); Glucose 134 mg/dL (70-110); LDL Cholesterol,Calculated 82.6 mg/dL (0.0-131.0); Non-African American GFR(CKD) 91.1 (60.0-200.0); Potassium 4.2 mmol/L (3.5-5.5); Sodium 138 mmol/L (135-145); Total Protein 6.9 g/dL (6.2-8.2)
== END | disposition home or self-care (01) ==
LOC: LABWHC1 08:09
PROVIDERS: ATTEND Internal Medicine Geriatric Medicine
DX: E11.9 Type 2 diabetes mellitus without complications (principal); J44.9 Chronic obstructive pulmonary disease, unspecified; E78.2 Mixed hyperlipidemia; E03.9 Hypothyroidism, unspecified
CPT/HCPCS: 36415; 80053; 80061; 83036; 84439; 84443; 85025

== ENCOUNTER → 2022-04-19 | Outpatient (CLI) | payer MEDICARE ==
--- NOTE | 2022-04-19 14:00 | US ---
EXAMINATION TYPE: US kidneys/renal and bladder DATE OF EXAM: 04/19/2022 COMPARISON: CT dated 09/30/2021 & US kidneys 09/06/2021 CLINICAL HISTORY: N20.0 CALCULUS OF KIDNEY. History of kidney stones EXAM MEASUREMENTS: Right Kidney: 11.0 x 5.6 x 7.4 cm Left Kidney: 12.7 x 6.8 x 6.7 cm Right Kidney: multiple stones - largest measuring 1.0cm, 1.5 x 1.6 x 1.6cm hyperechoic area lateral i nferior pole Left Kidney: hydronephrosis Bladder: wnl Bilateral Jets seen: no There is no evidence for hydronephrosis at this point in time. No nephrolithiasis is seen. No chandler s are identified. The urinary bladder is anechoic. Bilateral ureteral jets are seen. IMPRESSION: Right-sided nephrolithiasis. Echogenic focus right kidney was seen on previous ultrasound and a have grown slightly in interval, indeterminate. Stable left-sided hydronephrosis may be due to distal calc ulus as noted on previous exams
== END | disposition home or self-care (01) ==
LOC: RADUSWWP 12:12
PROVIDERS: ATTEND Urology
DX: N20.0 Calculus of kidney (principal)
CPT/HCPCS: 76770; 73610; G0463; 99213

== ENCOUNTER → 2022-05-06 | Outpatient (CLI) | payer MEDICARE ==
--- NOTE | 2022-05-06 13:13 | CT ---
EXAMINATION TYPE: CT abdomen pelvis wo con CT DLP: 964.20 mGycm, Automated exposure control for dose reduction was used. DATE OF EXAM: 05/06/2022 11:56 AM COMPARISON: CT abdomen pelvis most recent from 09/30/2021. CLINICAL INDICATION:Male, 66 years old with history of N13.2 HYDRONEPHROSIS WITH RENAL AND URETERAL C ALCU; HYDRONEPHROSIS WITH RENAL AND URETERAL CALCULI TECHNIQUE: Axial CT of the abdomen and pelvis. Sagittal and coronal reformats were created on a [id number] workstation. Contrast used:None Oral contrast used: without Oral Contrast FINDINGS: LOWER CHEST: Unremarkable ABDOMEN LIVER: Unremarkable GALLBLADDER AND BILE DUCTS: Unremarkable. PANCREAS: Unremarkable. SPLEEN: Unremarkable. ADRENAL GLANDS: Unremarkable. KIDNEYS AND URETERS: Right nonobstructing renal calculi are present measuring up to 6 mm. No evidence of obstructive calculi. Previous left distal ureteral calculus is no longer visualized. No evidence of hydronephrosis. PELVIS BLADDER: Partially distended and unremarkable. REPRODUCTIVE: Unremarkable.Calcification is are seen within the prostate gland ABDOMEN & PELVIS STOMACH AND BOWEL: No evidence of bowel obstruction. Scattered clonic diverticula. Appendix is normal . PERITONEUM: No evidence of pneumoperitoneum or free fluid. VASCULATURE: No evidence of aortic aneurysm. MUSCULOSKELETAL: No acute osseous abnormalities, multilevel disc degeneration changes are seen throug hout the spine. LYMPH NODES: No gross evidence for lymphadenopathy. SOFT TISSUE/ABDOMINAL WALL: Bilateral fat-containing inguinal hernias. Small fat-containing umbilical hernia. IMPRESSION: 1. No evidence of obstructive uropathy. Nonobstructing right renal calculi. 2. Bilateral inguinal hernias containing fat. 3. Colonic diverticulosis.
== END | disposition home or self-care (01) ==
LOC: RADCTMAIN 11:38
PROVIDERS: ATTEND Urology
DX: N20.0 Calculus of kidney (principal); K40.20 Bilateral inguinal hernia, without obstruction or gangrene, not specified as recurrent; K57.30 Diverticulosis of large intestine without perforation or abscess without bleeding
CPT/HCPCS: 74176

== ENCOUNTER → 2022-06-14 | Outpatient (CLI) | payer MEDICARE ==
[2022-06-14 15:23] LABS: Basophils # (A) 0.02 X 10*3/uL (0.00-0.10); Basophils % (A) 0.4 %; Eosinophils # (A) 0.13 X 10*3/uL (0.04-0.35); Eosinophils % (A) 2.4 %; HCT 42.5 % (39.6-50.0); HGB 14.6 g/dL (13.0-17.0); Immature Grans, Automated 0.2 %; Lymphocytes # (A) 1.39 X 10*3/uL (0.90-5.00); Lymphocytes % (A) 25.8 %; MCH 31.7 pg (27.0-32.0); MCHC 34.4 g/dL (32.0-37.0); MCV 92.4 fL (80.0-97.0); Mean Platelet Volume 10.1 fL (9.5-12.2); Monocytes # (A) 0.55 X 10*3/uL (0.20-1.00); Monocytes % (A) 10.2 %; NRBC Per 100 WBC 0 /100 WBCS (0.0-0.0); Neutrophils # (A) 3.29 X 10*3/uL (1.80-7.70); Platelet Count 186 X 10*3/uL (140-440); RDW 11.4 % (11.5-14.5); WBC 5.39 X 10*3/uL (4.50-10.00)
[2022-06-14 18:23] LABS: ALT 37 U/L (10-49); AST 19 U/L (14-35); African American GFR (CKD) 104.2 (60.0-200.0); Albumin 4.5 g/dL (3.8-4.9); Albumin/Globulin Ratio 1.73 (1.60-3.17); Alkaline Phosphatase 59 U/L (41-126); BUN/Creat Ratio 19.78 Ratio (12.00-20.00); Blood Urea Nitrogen 17.8 mg/dL (9.0-27.0); Calcium 9.7 mg/dL (8.7-10.3); Carbon Dioxide 21.3 mmol/L (20.0-27.5); Chloride 104 mmol/L (96-109); Chol/HDL Ratio 4.58 Ratio; Globulin 2.6 g/dL (1.6-3.3); Glucose 129 mg/dL (70-110); LDL Cholesterol,Calculated 109.7 mg/dL (0.0-131.0); Non-African American GFR(CKD) 89.9 (60.0-200.0); Potassium 4.4 mmol/L (3.5-5.5); Sodium 140 mmol/L (135-145); Total Protein 7.1 g/dL (6.2-8.2)
== END | disposition home or self-care (01) ==
LOC: LABWHC1 09:48
PROVIDERS: ATTEND Internal Medicine Geriatric Medicine
DX: E11.9 Type 2 diabetes mellitus without complications (principal); E78.2 Mixed hyperlipidemia; E03.9 Hypothyroidism, unspecified; J44.9 Chronic obstructive pulmonary disease, unspecified
CPT/HCPCS: 36415; 80053; 80061; 83036; 84439; 84443; 85025

== ENCOUNTER → 2022-09-21 | Outpatient (CLI) | payer MEDICARE ==
--- NOTE | 2022-09-21 14:05 | MR ---
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 Prior US and CT, benign mass right kidney COMPARISON: Ultrasound 09/08/2022, CT 05/06/2022, CT 09/23/2021 TECHNIQUE: Multiplanar multi-sequence imaging was performed without contrast. Post contrast imaging was performed. Post IV contrast subtraction images were also submitted for review. IV Contrast: 9.5 cc Gadavist FINDINGS: LOWER CHEST: No gross irregularity. ABDOMEN Liver: Hepatic steatosis. Gallbladder and Bile ducts: No evidence for stricture, dilation or choledocholithiasis. No cholelithi asis. Pancreas: Unremarkable. Spleen: Unremarkable. Adrenal glands: Unremarkable. Kidneys: Right kidney heterogenous T2/T1 signal lesion which has low T2 signal with a crescent-shaped higher a vern more laterally. The lateral crescent shaped area is intrinsic high T1 signal. This lesion measure s up to 2.1 cm and correlates with recent ultrasound finding of right inferior pole hyperechoic mass. No abnormal postcontrast enhancement on subtraction imaging. Additional right inferior pole intrinsic high T1 signal lesion measuring 7 mm without postcontrast en hancement. No obstructive uropathy. Stomach and Bowel: There is a small hiatal hernia. Scattered colonic diverticula. Peritoneum: No evidence of pneumoperitoneum or free fluid. Vasculature: Unremarkable. No aortic aneurysm. Musculoskeletal: The osseous structures appear intact. Lymph Nodes: No gross evidence for lymphadenopathy. Abdominal wall: Unremarkable. IMPRESSION: 1. Right renal lesion measuring up to 2.1 cm with intrinsic high T1 signal felt to represent hemorrh agic/proteinaceous cyst. Follow-up in 6 months with MRI renal mass protocol is recommended for stabil ity. No suspicious enhancing renal masses identified. 2. Right renal 7 mm inferior pole small hemorrhagic/proteinaceous cyst also present. Attention on fo llow-up. 3. Hepatic steatosis 4. Small hiatal hernia. 5. Clonic diverticulosis.
== END | disposition home or self-care (01) ==
LOC: RADMRIMAIN 07:51
PROVIDERS: ATTEND Urology
DX: D30.01 Benign neoplasm of right kidney (principal); K76.0 Fatty (change of) liver, not elsewhere classified; K44.9 Diaphragmatic hernia without obstruction or gangrene; K57.30 Diverticulosis of large intestine without perforation or abscess without bleeding; N28.89 Other specified disorders of kidney and ureter
CPT/HCPCS: 74183; A9585

== ENCOUNTER → 2022-10-19 | Outpatient (CLI) | payer MEDICARE ==
[2022-10-19 12:15] LABS: Creatinine,Urine Random 88.8 mg/dL; Protein/Creatinine Ratio,Urine 0.068
[2022-10-19 15:27] LABS: Basophils # (A) 0.03 X 10*3/uL (0.00-0.10); Basophils % (A) 0.5 %; Eosinophils # (A) 0.14 X 10*3/uL (0.04-0.35); Eosinophils % (A) 2.3 %; HCT 43.5 % (39.6-50.0); HGB 14.5 g/dL (13.0-17.0); Immature Grans, Automated 0.3 %; Lymphocytes # (A) 1.45 X 10*3/uL (0.90-5.00); Lymphocytes % (A) 24.3 %; MCH 30.4 pg (27.0-32.0); MCHC 33.3 g/dL (32.0-37.0); MCV 91.2 fL (80.0-97.0); Mean Platelet Volume 9.9 fL (9.5-12.2); Monocytes # (A) 0.58 X 10*3/uL (0.20-1.00); Monocytes % (A) 9.7 %; NRBC Per 100 WBC 0 /100 WBCS (0.0-0.0); Neutrophils # (A) 3.75 X 10*3/uL (1.80-7.70); Neutrophils % (A) 62.9 %; Platelet Count 176 X 10*3/uL (140-440); RBC 4.77 X 10*6/uL (4.40-5.60); RDW 11.6 % (11.5-14.5); WBC 5.97 X 10*3/uL (4.50-10.00)
[2022-10-19 15:51] LABS: ALT 43 U/L (10-49); AST 21 U/L (14-35); African American GFR (CKD) 107.5 (60.0-200.0); Albumin 4.5 g/dL (3.8-4.9); Albumin/Globulin Ratio 1.77 (1.60-3.17); Alkaline Phosphatase 55 U/L (41-126); BUN/Creat Ratio 19.37 Ratio (12.00-20.00); Blood Urea Nitrogen 15.9 mg/dL (9.0-27.0); Calcium 9.8 mg/dL (8.7-10.3); Chloride 102 mmol/L (96-109); Chol/HDL Ratio 3.75 Ratio; Globulin 2.5 g/dL (1.6-3.3); Glucose 133 mg/dL (70-110); LDL Cholesterol,Calculated 86.3 mg/dL (0.0-131.0); Magnesium 1.8 mg/dL (1.5-2.4); Non-African American GFR(CKD) 92.8 (60.0-200.0); Phosphorus 2.7 mg/dL (2.4-5.1); Potassium 4.6 mmol/L (3.5-5.5); Sodium 139 mmol/L (135-145); Uric Acid 5.6 mg/dL (3.7-8.7)
[2022-10-19 18:07] LABS: Microalbumin Creatinine Ratio <30 mg/g Creat (0-30); Urine Creatinine 94.9 mg/dL (39.0-259.0)
[2022-10-20 14:39] LABS: Appearance,Urine Cloudy (Clear); Bilirubin,Urine Negative (Negative); Blood,Urine Negative (Negative); Color,Urine Yellow (Yellow); Ketones,Urine Negative (Negative); Nitrite,Urine Negative (Negative); Specific Gravity,Urine 1.019 (1.001-1.030)
[2022-10-20 14:46] LABS: Bacteria,Urine None Seen /HPF (None Seen)
== END | disposition home or self-care (01) ==
LOC: LABWHC1 08:30
PROVIDERS: ATTEND Internal Medicine Geriatric Medicine
DX: Z00.00 Encounter for general adult medical examination without abnormal findings (principal); E11.9 Type 2 diabetes mellitus without complications; E78.2 Mixed hyperlipidemia; N40.0 Benign prostatic hyperplasia without lower urinary tract symptoms; E03.9 Hypothyroidism, unspecified; R80.9 Proteinuria, unspecified
CPT/HCPCS: 36415; 80053; 80061; 81001; 82043; 82306; 82570; 83036; 83735; 83970; 84100; 84153; 84156; 84439; 84443; 84550; 85025

== ENCOUNTER → 2022-11-28 | Outpatient (CLI) | payer MEDICARE ==
--- NOTE | 2022-11-28 14:03 | US ---
EXAMINATION TYPE: US kidneys/renal and bladder DATE OF EXAM: 11/28/2022 COMPARISON: NONE CLINICAL INDICATION: Male, 67 years old with history of N20.0 CALCULUS OF KIDNEY; Hx of kidney stones TECHNIQUE: Multiple sonographic images of the kidneys and bladder are obtained. EXAM MEASUREMENTS: Right Kidney: 11.7 x 5.2 x 6.2 cm Left Kidney: 12.5 x 6.4 x 4.0 cm Right Kidney: Echogenic area mid pole 1.0 cm. Vague echogenic area lower pole cortex measuring 1.9 x 2.1 x 2.4 cm. No hydronephrosis. Left Kidney: No hydronephrosis or masses seen Bladder: wnl Bilateral Jets seen: Yes IMPRESSION: 1. A vague echogenic mass at the lower pole of the right kidney measures 2.4 cm versus 2.1 cm on 09/21. Slight interval enlargement of a hemorrhagic proteinaceous cyst is favored. Ongoing surveillan ce follow-up recommended. 2. No hydronephrosis on either side. 3. Nonobstructive 1 cm right renal calculus.
== END | disposition home or self-care (01) ==
LOC: RADUSWWP 12:54
PROVIDERS: ATTEND Urology
DX: N20.0 Calculus of kidney (principal); N28.89 Other specified disorders of kidney and ureter
CPT/HCPCS: 76770

== ENCOUNTER → 2023-02-23 | Outpatient (CLI) | payer MEDICARE ==
[2023-02-23 16:22] LABS: ALT 47 U/L (10-49); AST 28 U/L (14-35); Albumin 4.6 d/dL (3.8-4.9); Albumin/Globulin Ratio 1.92 Ratio (1.60-3.17); Alkaline Phosphatase 68 U/L (41-126); BUN/Creat Ratio 18.38 Ratio (12.00-20.00); Blood Urea Nitrogen 14.7 mg/dL (9.0-27.0); Calcium 9.5 mg/dL (8.7-10.3); Carbon Dioxide 24.4 mmol/L (21.6-31.8); Chloride 102 mmol/L (96-109); Chol/HDL Ratio 4.12 Ratio; Globulin 2.4 d/dL (1.6-3.3); Glucose 160 mg/dL (70-110); LDL Cholesterol,Calculated 83.3 mg/dL (0.0-131.0); Potassium 4.4 mmol/L (3.5-5.5); Sodium 139 mmol/L (135-145); Total Bilirubin 0.5 mg/dL (0.3-1.2)
[2023-02-23 18:04] LABS: Urine Creatinine 27.8 mg/dL (39.0-259.0)
== END | disposition home or self-care (01) ==
LOC: LABWHC1 09:14
PROVIDERS: ATTEND Internal Medicine Geriatric Medicine
DX: E11.9 Type 2 diabetes mellitus without complications (principal)
CPT/HCPCS: 36415; 80053; 80061; 82043; 82570; 83036

== ENCOUNTER → 2023-06-06 | Outpatient (CLI) | payer MEDICARE ==
--- NOTE | 2023-06-06 21:34 | US ---
EXAMINATION TYPE: US kidneys/renal and bladder DATE OF EXAM: 06/06/2023 COMPARISON: Multiple US, MR, CT CLINICAL INDICATION: Male, 67 years old with history of N28.1,N20.0; Cyst, stone. EXAM MEASUREMENTS: Right Kidney: 12.0 x 5.3 x 5.7 cm Left Kidney: 12.0 x 6.3 x 5.9 cm Right Kidney: Hypoechoic area seen lower pole: 2.0 x 2.1 x 2.2 cm. Previous measurement 2.4 cm. Hyperechoic area seen adjacent to hypoechoic area lower pole: 2.1 x 2.1 x 2.2 cm. -Hyperechoic focus with shadowing seen at mid: 0.7 x 0.6 x 0.6 cm. Left Kidney: No hydronephrosis or masses seen Bladder: Appears wnl Bilateral Jets seen: Yes IMPRESSION: 1. Stable appearing isoechoic nodule lateral right renal cortex. 2. Nonobstructing renal stone mid to inferior pole right kidney.
== END | disposition home or self-care (01) ==
LOC: RADUSWWP 08:52
PROVIDERS: ATTEND Urology
DX: N20.0 Calculus of kidney (principal); N28.1 Cyst of kidney, acquired
CPT/HCPCS: 76770

== ENCOUNTER → 2023-11-28 | Outpatient (CLI) | payer MEDICARE ==
--- NOTE | 2023-11-28 11:12 | US ---
EXAMINATION TYPE: US kidneys/renal and bladder DATE OF EXAM: 11/28/2023 COMPARISON: Prior ultrasounds and CT 12/08/2020. CLINICAL INDICATION: Male, 68 years old with history of N28.1 CYST OF KIDNEY N20.0 CALCULUS OF KIDNEY ; reassess stone and lesion, no symptoms EXAM MEASUREMENTS: Right Kidney: 10.2 x 4.0 x 5.9 cm Left Kidney: 12.3 x 4.9 x 6.2 cm Right Kidney: 0.8cm mid pole seen, hypoechoic lesions seen = 2.5 x 2.5 x 2.5cm Left Kidney: No hydronephrosis or masses seen Bladder: wnl There is no evidence for hydronephrosis at this point in time. No nephrolithiasis is seen. No chandler s are identified. The urinary bladder is anechoic. Bilateral ureteral jets are seen. IMPRESSION: 1. No evidence for obstructive uropathy. 2. Hyperechoic lesion in the right kidney is not definitely seen on CT on 2020. Consider further harpreet luation with MRI with IV contrast renal mass protocol has findings concerning for renal cell carcinom a until proven otherwise. 3. Nonobstructing right renal calculus.
== END | disposition home or self-care (01) ==
LOC: RADUSWWP 10:15
PROVIDERS: ATTEND Urology
DX: N20.0 Calculus of kidney (principal); N28.1 Cyst of kidney, acquired
CPT/HCPCS: 76770

== ENCOUNTER → 2024-04-15 | Outpatient (CLI) | payer MEDICARE ==
[2024-04-15 11:17] LABS: Basophils # (A) 0.02 X 10*3/uL (0.00-0.10); Basophils % (A) 0.3 %; Eosinophils # (A) 0.12 X 10*3/uL (0.04-0.35); HCT 42.9 % (39.6-50.0); HGB 14.5 g/dL (13.0-17.0); Lymphocytes # (A) 1.61 X 10*3/uL (0.90-5.00); Lymphocytes % (A) 26.7 %; MCH 30.5 pg (27.0-32.0); MCHC 33.8 g/dL (32.0-37.0); MCV 90.3 FL (80.0-97.0); Mean Platelet Volume 9.7 FL (9.5-12.2); Monocytes # (A) 0.61 X 10*3/uL (0.20-1.00); Monocytes % (A) 10.1 %; NRBC Per 100 WBC 0 X 10*3/uL (0.00-0.01); Neutrophils # (A) 3.65 X 10*3/uL (1.80-7.70); Neutrophils % (A) 60.6 %; Platelet Count 191 X 10*3/uL (140-440); RBC 4.75 X 10*6/uL (4.40-5.60); RDW 12.1 % (11.5-14.5); WBC 6.03 X 10*3/uL (4.50-10.00)
[2024-04-15 12:11] LABS: Urine Creatinine 87.6 mg/dL (39.0-259.0)
[2024-04-15 12:13] LABS: ALT 57 U/L (10-49); AST 29 U/L (14-35); Albumin 4.4 g/dL (3.8-4.9); Albumin/Globulin Ratio 1.63 Ratio (1.60-3.17); Alkaline Phosphatase 71 U/L (41-126); BUN/Creat Ratio 21.25 Ratio (12.00-20.00); Calcium 9.4 mg/dL (8.7-10.3); Carbon Dioxide 23.2 mmol/L (21.6-31.8); Chloride 102 mmol/L (96-109); Chol/HDL Ratio 3.48 Ratio; Globulin 2.7 g/dL (1.6-3.3); Glucose 127 mg/dL (70-110); Potassium 4.4 mmol/L (3.5-5.5); Sodium 137 mmol/L (135-145); T4, Free (Free Thyroxine) 1.22 ng/dL (0.80-1.80); Total Bilirubin 0.6 mg/dL (0.3-1.2); Total Protein 7.1 g/dL (6.2-8.2)
== END | disposition home or self-care (01) ==
LOC: LABWHC1 09:01
PROVIDERS: ATTEND Internal Medicine Geriatric Medicine
DX: G47.33 Obstructive sleep apnea (adult) (pediatric) (principal); E11.3293 Type 2 diabetes mellitus with mild nonproliferative diabetic retinopathy without macular edema, bilateral; E03.9 Hypothyroidism, unspecified
CPT/HCPCS: 36415; 80053; 80061; 82043; 82570; 83036; 84439; 84443; 85025

== ENCOUNTER → 2024-05-27 | Outpatient (CLI) | payer MEDICARE ==
--- NOTE | 2024-05-27 16:53 | US ---
EXAMINATION TYPE: US kidneys/renal and bladder DATE OF EXAM: 05/27/2024 COMPARISON: Portable renal ultrasound to most recent 11/28/2023, MR kidneys 09/21/2022, CT abdomen pelv is 05/06/2022 CLINICAL INDICATION: Male, 68 years old with history of N28.1 RENAL CYST; Recheck kidney stones and r ight renal lesion TECHNIQUE: Grayscale imaging of the bilateral kidneys and urinary bladder: FINDINGS: EXAM MEASUREMENTS: Right Kidney: 11.4 x 5.6 x 6.1 cm Left Kidney: 11.4 x 6.0 x 5.3 cm Right Kidney: 0.8cm stone lateral mid pole, 3.0 x 2.4 x 2.8cm hyperechoic lesion inferior pole Left Kidney: wnl Bladder: wnl Bilateral Jets seen: right jet seen, left jet not seen There is no evidence for hydronephrosis at this point in time. Cortical medullary differentiation is maintained bilaterally. Nonobstructive lateral midpole right kidney 0.8 cm shadowing calculus. Hypere choic lesion within the inferior pole of the right kidney measuring up to 3 cm. No left renal shadowi ng calculi identified. No left renal masses identified. The urinary bladder is anechoic. Right ureter al jet identified. The left ureteral jet is not visualized. IMPRESSION: 1. No hydronephrosis. 2. Nonobstructive right renal calculus. 3. Mildly increased size of right lower pole hyperechoic lesion measuring up to 3.0 cm. Previously ch aracterized as a hemorrhagic/proteinaceous cyst. Consider follow-up MR abdomen with IV contrast (parris l mass protocol). [facility], , 05/27/2024 4:51 PM
== END | disposition home or self-care (01) ==
LOC: RADUSWWP 11:27
PROVIDERS: ATTEND Urology
DX: N28.1 Cyst of kidney, acquired (principal); N20.0 Calculus of kidney
CPT/HCPCS: 76770

== ENCOUNTER → 2024-09-02 | Outpatient (CLI) | payer MEDICARE ==
[2024-09-02 15:03] LABS: Basophils # (A) 0.02 X 10*3/uL (0.00-0.10); Basophils % (A) 0.3 %; Eosinophils # (A) 0.13 X 10*3/uL (0.04-0.35); Eosinophils % (A) 2.3 %; HCT 43.3 % (39.6-50.0); HGB 14.6 g/dL (13.0-17.0); Lymphocytes # (A) 1.51 X 10*3/uL (0.90-5.00); Lymphocytes % (A) 26.2 %; MCH 31.1 pg (27.0-32.0); MCHC 33.7 g/dL (32.0-37.0); MCV 92.3 FL (80.0-97.0); Mean Platelet Volume 10.1 FL (9.5-12.2); Monocytes # (A) 0.58 X 10*3/uL (0.20-1.00); Monocytes % (A) 10.1 %; NRBC Per 100 WBC 0 X 10*3/uL (0.00-0.01); Neutrophils # (A) 3.52 X 10*3/uL (1.80-7.70); Neutrophils % (A) 60.9 %; Platelet Count 182 X 10*3/uL (140-440); RBC 4.69 X 10*6/uL (4.40-5.60); RDW 11.8 % (11.5-14.5); WBC 5.77 X 10*3/uL (4.50-10.00)
[2024-09-02 15:35] LABS: ALT 47 U/L (10-49); AST 25 U/L (14-35); Albumin 4.4 g/dL (3.8-4.9); Albumin/Globulin Ratio 1.69 Ratio (1.60-3.17); Alkaline Phosphatase 66 U/L (41-126); BUN/Creat Ratio 19.78 Ratio (12.00-20.00); Blood Urea Nitrogen 17.8 mg/dL (9.0-27.0); Calcium 9.6 mg/dL (8.7-10.3); Carbon Dioxide 23.6 mmol/L (21.6-31.8); Chloride 103 mmol/L (96-109); Chol/HDL Ratio 3.37 Ratio; Globulin 2.6 g/dL (1.6-3.3); Glucose 122 mg/dL (70-110); LDL Cholesterol,Calculated 70.7 mg/dL (0.0-131.0); Potassium 4.5 mmol/L (3.5-5.5); Sodium 139 mmol/L (135-145); Total Bilirubin 0.6 mg/dL (0.3-1.2)
== END | disposition home or self-care (01) ==
LOC: LABWHC1 08:11
PROVIDERS: ATTEND Internal Medicine Geriatric Medicine
DX: E78.2 Mixed hyperlipidemia (principal); E11.3293 Type 2 diabetes mellitus with mild nonproliferative diabetic retinopathy without macular edema, bilateral; E55.9 Vitamin D deficiency, unspecified; E03.9 Hypothyroidism, unspecified; N40.0 Benign prostatic hyperplasia without lower urinary tract symptoms; J44.9 Chronic obstructive pulmonary disease, unspecified
CPT/HCPCS: 36415; 80053; 80061; 82306; 83036; 84439; 84443; 85025

== ENCOUNTER → 2024-11-25 | Outpatient (CLI) | payer MEDICARE ==
[2024-11-25 10:37] LABS: African American GFR (CKD) >90 (>60 ml/min/1.73 sqM); Blood Urea Nitrogen 12 mg/dL (9-20); Non-African American GFR(CKD) >90 (>60 ml/min/1.73 sqM)
--- NOTE | 2024-11-25 14:25 | CT ---
EXAMINATION TYPE: CT abdomen wo/w con DATE OF EXAM: 11/25/2024 COMPARISON: September 21, 2022 and older studies. CLINICAL INDICATION: Male, 69 years old with history of N20.0 CALCULUS OF KIDNEY N28.1 CYST OF KIDNEY , Cyst of kidney., TECHNIQUE: CT scan of the abdomen is performed without and with IV Contrast, patient injected with 100ml mL of I sovue 300., (none if empty) Oral contrast used: without Oral Contrast (none if empty) CT DLP: 2058.3 mGycm, Automated exposure control for dose reduction was used. FINDINGS: LUNG BASES: No significant abnormality is appreciated. LIVER/GB: No significant abnormality is appreciated. PANCREAS: No significant abnormality is seen. SPLEEN: No significant abnormality is seen. ADRENALS: No significant abnormality is seen. KIDNEYS: There is 2 mm nonobstructing calculus left kidney on noncontrast images axial image 29. Ther e are 3 right renal calculi measuring up to 6 mm in size. Postcontrast images show symmetric cortical medullary uptake and excretion without hydronephrosis seen bilaterally. No suspicious solid or cysti c masses in the left kidney. Right kidney shows stable slightly exophytic round lesion laterally righ t kidney measuring 2.5 cm in size that is isodense to kidney on noncontrast images and hypodense to k idney on postcontrast images corresponds to prior visualized proteinaceous cyst. No new suspicious le sions are seen. BOWEL: No significant abnormality is seen. LYMPH NODES: No greater than 1cm abdominal lymph nodes are appreciated. OSSEOUS STRUCTURES: Multilevel spurring in the spine is redemonstrated. OTHER: No significant additional abnormality is seen. IMPRESSION: Stable 2.5 cm round lesion laterally right kidney felt to reflect proteinaceous cyst. [facility], , 11/25/2024 2:23 PM
== END | disposition home or self-care (01) ==
LOC: RADCTMAIN 09:52
PROVIDERS: ATTEND Urology
DX: N20.0 Calculus of kidney (principal); N28.1 Cyst of kidney, acquired; N28.89 Other specified disorders of kidney and ureter
CPT/HCPCS: 82565; 84520; 74170; 36415; Q9967

== ENCOUNTER → 2024-12-23 | Outpatient (CLI) | payer MEDICARE ==
[2024-12-23 16:23] LABS: Basophils # (A) 0.02 X 10*3/uL (0.00-0.10); Basophils % (A) 0.4 %; Eosinophils # (A) 0.12 X 10*3/uL (0.04-0.35); Eosinophils % (A) 2.3 %; HCT 41.4 % (39.6-50.0); Lymphocytes # (A) 1.61 X 10*3/uL (0.90-5.00); Lymphocytes % (A) 31.3 %; MCHC 33.8 g/dL (32.0-37.0); MCV 91.8 FL (80.0-97.0); Mean Platelet Volume 9.9 FL (9.5-12.2); Monocytes # (A) 0.57 X 10*3/uL (0.20-1.00); Monocytes % (A) 11.1 %; NRBC Per 100 WBC 0 X 10*3/uL (0.00-0.01); Neutrophils # (A) 2.81 X 10*3/uL (1.80-7.70); Neutrophils % (A) 54.7 %; Platelet Count 184 X 10*3/uL (140-440); RBC 4.51 X 10*6/uL (4.40-5.60); RDW 11.8 % (11.5-14.5); WBC 5.14 X 10*3/uL (4.50-10.00)
[2024-12-23 16:47] LABS: ALT 57 U/L (10-49); AST 31 U/L (14-35); Albumin 4.3 g/dL (3.8-4.9); Albumin/Globulin Ratio 1.72 Ratio (1.60-3.17); Alkaline Phosphatase 66 U/L (41-126); Blood Urea Nitrogen 14.8 mg/dL (9.0-27.0); Calcium 9.5 mg/dL (8.7-10.3); Carbon Dioxide 23.4 mmol/L (21.6-31.8); Chloride 102 mmol/L (96-109); Chol/HDL Ratio 3.33 Ratio; Creatine Kinase 70 U/L (35-257); Globulin 2.5 g/dL (1.6-3.3); Glucose 127 mg/dL (70-110); LDL Cholesterol,Calculated 71.1 mg/dL (0.0-131.0); Potassium 4.4 mmol/L (3.5-5.5); Sodium 138 mmol/L (135-145); Total Bilirubin 0.6 mg/dL (0.3-1.2); Total Protein 6.8 g/dL (6.2-8.2)
[2024-12-23 16:48] LABS: Prostate Specific Antigen 1.84 ng/mL (0.000-4.500); T4, Free (Free Thyroxine) 1.55 ng/dL (0.80-1.80)
== END | disposition home or self-care (01) ==
LOC: LABWHC1 08:58
PROVIDERS: ATTEND Internal Medicine Geriatric Medicine
DX: G47.33 Obstructive sleep apnea (adult) (pediatric) (principal); E78.2 Mixed hyperlipidemia; N40.0 Benign prostatic hyperplasia without lower urinary tract symptoms; E03.9 Hypothyroidism, unspecified; E11.3293 Type 2 diabetes mellitus with mild nonproliferative diabetic retinopathy without macular edema, bilateral
CPT/HCPCS: 36415; 80053; 80061; 82550; 83036; 84153; 84439; 84443; 85025